=== PATIENT | female | born 1980 ===

== ENCOUNTER 2018-07-21 19:32 | Emergency (ER) | payer BC ==
[2018-07-21] MEDS ORDERED: Aspirin 325 mg EC Tablets PO STA (20:03)
--- NOTE | 2018-07-21 20:03 | C.PDOC ---
History Of Present Illness The patient presents to the ED for evaluation of chest pain and mild shortness of breath which began after work today. Patient states she has been non- compliant with her blood pressure medications for over one year. She reports mild left chest wall discomfort that is reproducible with palpation. Patient denies nausea, vomiting, extremity numbness/weakness. Time Seen by Provider: 07/21/18 20:02 Chief Complaint (Nursing): Chest Pain History Per: Patient History/Exam Limitations: no limitations Onset/Duration Of Symptoms: Hrs Current Symptoms Are (Timing): Still Present Severity: Mild Pain Scale Rating Of: 1 Quality: "Pain" Associated Symptoms: denies: Nausea Modifying Factors: None Exacerbating Factors: None Alleviating Factors: None Recent travel outside of the [place]: No Additional History Per: Patient Past Medical History Reviewed: Historical Data, Nursing Documentation, Vital Signs Vital Signs: Last Vital Signs Temp 98.2 F 07/21/18 19:45 Pulse 85 07/21/18 19:45 Resp 20 07/21/18 19:45 BP 195/99 H 07/21/18 19:45 Pulse Ox 99 07/21/18 19:45 - Medical History PMH: HTN (non complaint), TIA Surgical History: Appendectomy, Cholecystectomy Family History: States: Unknown Family Hx - Social History Hx Alcohol Use: Yes Hx Substance Use: No - Immunization History Hx Tetanus Toxoid Vaccination: Yes Hx Influenza Vaccination: No Hx Pneumococcal Vaccination: No Review Of Systems Constitutional: Negative for: Fever, Chills Eyes: Negative for: Vision Change Cardiovascular: Positive for: Chest Pain (left-sided ) Respiratory: Positive for: Shortness of Breath. Negative for: Cough Gastrointestinal: Negative for: Nausea, Vomiting, Abdominal Pain Genitourinary: Negative for: Dysuria, Frequency, Hematuria Musculoskeletal: Negative for: Neck Pain, Arm Pain, Back Pain Skin: Negative for: Rash, Lesions, Jaundice, Bruising Neurological: Negative for: Weakness, Numbness Physical Exam - Physical Exam Appears: Non-toxic, No Acute Distress Skin: Warm, Dry Head: Normacephalic Eye(s): bilateral: Normal Inspection Oral Mucosa: Moist Neck: Supple Chest: Symmetrical, No Deformity, Tenderness (mild, to left chest wall on palpation ) Cardiovascular: Rhythm Regular, No Murmur Respiratory: No Rales, No Rhonchi, No Wheezing, Other (speaking in complete sentences ) Gastrointestinal/Abdominal: Soft, No Tenderness Extremity: Normal ROM, Capillary Refill (less than 2 seconds ) Neurological/Psych: Oriented x3 ED Course And Treatment - Laboratory Results Result Diagrams: 07/21/18 20:21 07/21/18 20:21 ECG: Interpreted By Me, Viewed By Me ECG Rhythm: Sinus Rhythm (88), Nonspecific Changes (marked sinus arrithymia) O2 Sat by Pulse Oximetry: 99 (on RA ) Pulse Ox Interpretation: Normal Progress Note: Bloodwork, urinalysis, CXR, EKG ordered and reviewed. Aspirin PO given. Reevaluation Time: 23:09 Reassessment Condition: Improved Medical Decision Making Medical Decision Making: pt is chest pain free. Wants to go home. Bp improved. Will follow up in clinic and was encouraged to return if symptoms recur Disposition Counseled Patient/Family Regarding: Studies Performed, Diagnosis, Need For Followup - Disposition Referrals: [facility] [Outside] [facility] [Outside] Disposition: HOME/ ROUTINE Disposition Time: 20:02 Condition: FAIR Additional Instructions: Please return if symptoms recur Prescriptions: Lisinopril/Hydrochlorothiazide [Lisinopril-Hctz 10-12.5 mg Tab] 1 each PO DAILY #15 tablet Instructions: High Blood Pressure (DC) Forms: [facility] (Slovenian) - Clinical Impression Clinical Impression: Hypertension - Scribe Statement The provider has reviewed the documentation as recorded by the Scribe (Gia Hopson) Provider Attestation: All medical record entries made by the Scribe were at my direction and pers onally dictated by me. I have reviewed the chart and agree that the record accurately reflects my personal performance of the history, physical exam, medical decision making, and the department course for this patient. I have also personally directed, reviewed, and agree with the discharge instructions and disposition.
[2018-07-21] MEDS ORDERED: Aspirin 325 mg EC Tablets PO ONE (20:11)
[2018-07-21 20:33] LABS: HCG,QUALITATIVE URINE NEGATIVE (NEGATIVE)
[2018-07-21 20:35] LABS: SQUAMOUS EPITHIAL < 1 /hpf (0-5); URINE BACTERIA RARE (<OCC); URINE BILIRUBIN NEGATIVE (NEGATIVE); URINE CLARITY Clear (Clear); URINE COLOR Colorless (YELLOW); URINE GLUCOSE (UA) NORMAL (Normal); URINE LEUKOCYTE ESTERASE NEG Leu/uL (Negative); URINE PROTEIN NEGATIVE (NEGATIVE); URINE UROBILINOGEN NORMAL mg/dL (0.2-1.0)
[2018-07-21 20:40] LABS: BASO # 0.1 K/uL (0.0-0.2); BASO % 0.8 % (0.0-2.0); EOS # 0.1 K/uL (0.0-0.7); HEMOGLOBIN 9.2 g/dL (11.0-16.0); LYMPH # 1.1 K/uL (1.0-4.3); LYMPH % 13.4 % (20.0-40.0); MEAN CELL VOLUME 70.2 fL (81.0-99.0); MEAN CORPUSCULAR HEMOGLOBIN 21.2 pg (27.0-31.0); MEAN CORPUSCULAR HGB CONC 30.2 g/dL (33.0-37.0); MEAN PLATELET VOLUME 10.2 fL (7.2-11.7); MONO # 0.4 K/uL (0.0-0.8); MONO % 4.5 % (0.0-10.0); NEUT # 6.4 K/uL (1.8-7.0); NEUT % 80.3 % (50.0-75.0); RBC 4.35 Mil/uL (3.80-5.20); RED CELL DISTRIBUTION WIDTH 20.6 % (11.5-14.5)
[2018-07-21 20:44] LABS: ALB/GLOB RATIO 1.6 (1.0-2.1); ALBUMIN 4.9 g/dL (3.5-5.0); ALT/SGPT 25 U/L (9-52); AST/SGOT 29 U/L (14-36); BLOOD UREA NITROGEN 14 mg/dL (7-17); CALCIUM 9.2 mg/dl (8.6-10.4); GFR NON-AFRICAN AMERICAN > 60
[2018-07-21 20:45] LABS: URINE BLOOD TRACE (NEGATIVE)
[2018-07-21 20:55] LABS: B-TYPE NATRIURETIC PEPTIDE 129 pg/mL (0-450)
[2018-07-21 21:01] LABS: PROTHROMBIN TIME 10.6 SECONDS (9.7-12.2)
[2018-07-21 22:09] VITALS: RESP 16
[2018-07-21 23:05] VITALS: BP 145/99; PULSE 76; TEMP 98.3
[2018-07-21 23:13] VITALS: O2SAT 99
--- NOTE | 2018-07-22 10:44 | RAD ---
HISTORY: cp COMPARISON: None available TECHNIQUE: Chest, one view. FINDINGS: Examination limited by habitus. LUNGS: No focal consolidation. Please note that chest x-ray has limited sensitivity for the detection of pulmonary masses. PLEURA: No significant pleural effusion identified. No definite pneumothorax . CARDIOVASCULAR: Heart size appears within normal limits. No significant atherosclerotic calcification of the aorta identified. OSSEOUS STRUCTURES: No acute osseous abnormality identified. VISUALIZED UPPER ABDOMEN: Unremarkable. OTHER FINDINGS: None. IMPRESSION: No focal consolidation.
--- NOTE | 2018-07-24 21:58 | CARD ---
APPROVED REPORT Date of service: 07/21/2018 EKG Measurement Heart [id number] <Conclusion> Sinus rhythm with marked sinus arrhythmia Possible Anterior infarct, age undetermined Abnormal ECG
== END 2018-07-21 23:29 | disposition home or self-care (01) ==
LOC: C.ER 19:32
DX: I10 Essential (primary) hypertension (principal); Z91.14 Patient's other noncompliance with medication regimen